=== PATIENT | female | born 2000 | race Two or more races ===

== ENCOUNTER 2025-02-05 23:47 | Inpatient (IN) | payer MEDICAID, OTHER ==
[~2025-02-05] VITALS: Ht 160 cm; Wt 65.9 kg
[2025-02-06 00:31] LABS: Urine Bacteria None Seen /hpf (None Seen)
--- NOTE | 2025-02-06 00:38 | ED.PDOC ---
GI ASSESSMENT HPI Comments 24 year old female presents to the ED with a chief complaint of abdominal pain onset yesterday (02/05/25) around 13:00. Patient began experiencing diffused abdominal pain, now worse around epigastric region. She is also experiencing diarrhea, dizziness and noticed abdominal pain worsens with deep breaths. Denies any PMHx as well as nausea, vomiting, fevers, chills, chest pain, shortness of breath, dysuria, hematuria. No other symptoms or modifying factors present at this time. Chief Complaint: Abdominal Pain Time Seen by MD: 00:25 Reviewed Notes: Medications, Allergies Allergies: Coded Allergies: NO KNOWN ALLERGIES (Unverified , 02/06/25) Information Source: Patient Mode of Arrival: Ambulatory Timing: Hours Duration: Since onset Prehospital treatment: None Quality: Aching, Sharp Vomitus: None Severity: Moderate Recent: None Recent Hx of: None Pain Location: Diffuse, Epigastric Modifying Factors: Nothing Associated sign and symptoms: Diarrhea, Abdominal Pain Past Medical History PAST MEDICAL HISTORY: Denies Surgical History: Denies all surgeries SANITOR History: No Pertinent SANITOR History Family History Family History: Reviewed,noncontributory to illness, No family hx of Cancer, No family hx of DM, No family hx of Heart charles, No family hx of HTN, No family hx ofKidney charles, No family hx of Liver charles, No family hx of Lung charles, No family hx of Stroke Social History Smoker: Non-Smoker Alcohol: Denies ETOH Use Drugs: Denies Drug Use Lives In: Home Constitutional: denies: chills, diaphoresis, fatigue, fever, malaise, sweats, weakness, others EENTM: denies: blurred vision, double vision, ear bleeding, ear discharge, ear drainage, ear pain, ear ringing, eye pain, eye redness, hearing loss, mouth pain, mouth swelling, nasal discharge, nose bleeding, nose congestion, nose pain, photophobia, tearing, throat pain, throat swelling, voice changes, others Respiratory: denies: cough, hemoptysis, orthopnea, SOB at rest, shortness of breath, SOB with excertion, stridor, wheezing, others Cardiovascular: denies: chest pain, dizzy spells, diaphoresis, Dyspnea on exertion, edema, irregular heart beat, left arm pain, lightheadedness, palpitations, PND, syncope, others Gastrointestinal: reports: abdominal pain, diarrhea; denies: abdomen distended, blood streaked bowels, constipated, dysphagia, difficulty swallowing, hematemesis, melena, nausea, poor appetite, poor fluid intake, rectal bleeding, rectal pain, vomiting, others Genitourinary: denies: abnormal vagina bleeding, burning, dyspareunia, dysuria, flank pain, frequency, hematuria, incontinence, pain, , vagina discharge, urgency, others Neurological: denies: dizziness, fainting, headache, left sided numbness, left sided weakness, numbness, paresthesia, pre-existing deficit, right sided numbness, right sided weakness, seizure, speech problems, tingling, tremors, weakness, others Musculoskeletal: denies: back pain, gout, joint pain, joint swelling, muscle pain, muscle stiffness, neck pain, others Integumetry: denies: bruises, change in color, change in hair/nails, dryness, laceration, lesions, lumps, rash, wounds, others Allergic/Immunocompromised: denies: Difficulty Healing, Frequent Infections, Hives, Itching, others Hematologic/Lymphatic: denies: anemia, blood clots, easy bleeding, easy bruising, swollen glands, others Endocrine: denies: excessive hunger, excessive sweating, excessive thirst, excessive urination, flushing, intolerance to cold, intolerance to heat, unexplained weight gain, unexplained weight loss, others Psychiatric: denies: anxiety, bipolar disorder, depression, hopeless, panic disorder, schizophrenia, sleepless, suicidal, others All Other Systems: Reviewed and Negative Physical Exam General Appearance: No Apparent Distress, Normal HEENT: Normal ENT Inspection, Pharynx Normal, TMs Normal Neck: Full Range of Motion, Non-Tender, Normal, Normal Inspection Respiratory: Chest Non-Tender, Lungs Clear, No Accessory Muscle Use, No Respiratory Distress, Normal Breath Sounds Cardiovascular: No Edema, No JVD, No Murmur, No Gallop, Normal Peripheral Pulses, Regular Rate/Rhythm Breast Exam: Deferred Gastrointestinal: No Organomegaly, Non Tender, No Pulsatile Mass, Normal Bowel Sounds, Soft Genitalia: Deferred Pelvic: Deferred Rectal: Deferred Extremities: No calf tenderness, Normal capillary refill, Normal inspection, Normal range of motion, Non-tender, No pedal edema Musculoskeletal : Apperance: Normal Neurologic: Alert, doughnut icer machine II-XII nml as Tested, No Motor Deficits, Normal Affect, Normal Mood, No Sensory Deficits Cerebellar Function: Normal Reflexes: Normal Skin: Dry, Normal Color, Warm Lymphatic: No Adenopathy Was a procedure done? Was a procedure done?: No GI differential Dx Differential Diagnosis: Complete , Incomplete , Inevitable , Threatened , Ectopic , Gastritis/PUD, Gastroenteritis, UTI, Other X-Ray, Labs, Meds, VS Vital Signs Date Time Temp Pulse Resp B/P (MAP) Pulse Ox O2 Delivery O2 Flow Rate FiO2 02/06/25 04:00 74 16 117/54 (75) 99 02/06/25 03:30 79 16 99 Room Air* 0 21 02/06/25 03:30 98.5 79 16 113/57 (75) 99 98.5 02/06/25 01:15 90 14 122/74 (90) 98 02/06/25 00:20 98.9 90 14 122/74 (90) 98 98.9 Lab Test 02/06/25 00:24 02/06/25 00:15 Range/Units White Blood Count 12.6 H 4.4-10.8 10^3/uL Red Blood Count 4.07 4.0-5.20 10^6/uL Hemoglobin 11.1 L 12.2-16.2 g/dL Hematocrit 33.5 L 36.0-46.0 % Mean Corpuscular Volume 82.2 80.0-100.0 fL Mean Corpuscular Hemoglobin 27.1 L 28.0-32.0 pg Mean Corpuscular Hemoglobin Concent 33.0 32.0-36.0 g/dL Red Cell Distribution Width 14.3 11.8-14.3 % Platelet Count 270 140-450 10^3/uL Mean Platelet Volume 8.9 6.9-10.8 fL Neutrophils (%) (Auto) 76.5 37.0-80.0 % Lymphocytes (%) (Auto) 15.9 10.0-50.0 % Monocytes (%) (Auto) 6.8 0.0-12.0 % Eosinophils (%) (Auto) 0.3 0.0-7.0 % Basophils (%) (Auto) 0.5 0.0-2.0 % Neutrophils # (Auto) 9.7 H 1.6-8.6 10 ^3/uL Lymphocytes # (Auto) 2.0 0.4-5.4 10 ^3/uL Monocytes # (Auto) 0.9 0-1.3 10 ^3/uL Eosinophils # (Auto) 0 0-0.8 10 ^3/uL Basophils # (Auto) 0.1 0-0.2 10 ^3/uL Nucleated Red Blood Cells 0.0 % Prothrombin Time 10.8 9.3-11.8 sec Prothrombin Time INR 1.02 0.9-1.15 Activated Partial Thromboplast Time 24.5 24.5-34.5 SEC Sodium Level 139 136-145 mmol/L Potassium Level 3.7 3.5-5.1 mmol/L Chloride Level 104 98-107 mmol/L Carbon Dioxide Level 25 20-31 mmol/L Anion Gap 10 5-15 Blood Urea Nitrogen 12 9-23 mg/dL Creatinine 0.77 0.550-1.02 mg/dL Glomerular Filtration Rate Calc 110 >90 mL/min BUN/Creatinine Ratio 15.6 10.0-20.0 Serum Glucose 114 H 74-106 mg/dL Calcium Level 9.3 8.7-10.4 mg/dL Total Bilirubin 0.5 0.2-1.0 mg/dL Aspartate Amino Transferase (AST) 14 13-40 U/L Alanine Aminotransferase (ALT) 16 7-40 U/L Alkaline Phosphatase 56 46-116 U/L Total Protein 6.9 5.7-8.2 g/dL Albumin 4.5 3.2-4.8 g/dL Lipase 32 12-53 U/L Beta HCG, Quantitative 3191.5 H 1.5-4.2 mIU/mL Urine Color Yellow Yellow Urine Clarity Turbid H Clear Urine pH 5.5 5.0-9.0 Urine Specific [place] 1.031 1.001-1.035 Urine Protein Negative Negative Urine Ketones 1+ H Negative Urine Blood 2+ H Negative /uL Urine Nitrite Negative Negative Urine Bilirubin Negative Negative Urine Urobilinogen Normal Negative mg/dL Urine Leukocyte Esterase Negative Negative /uL Urine RBC 1 0 - 4 /hpf Urine Microscopic WBC 4 0-5 /HPF Urine Squamous Epithelial Cells Mod <5 /hpf Urine Bacteria None seen None Seen /hpf Urine Hyaline Casts Few 0 - 2 /lpf Urine Mucus Few None Seen Urine Glucose Normal Normal mg/dL Current Medications Medications (Trade) Dose Ordered Sig/Ed Route Start Time Stop Time Status Last Admin Ondansetron HCl (Zofran Po) 4 mg ONCE ONCE PO 02/06/25 00:45 02/06/25 00:46 DC 02/06/25 01:12 Al Hydrox/Mg Hydrox/Simethicone (Maalox Plus) 30 ml ONCE ONCE PO 02/06/25 00:45 02/06/25 00:46 DC 02/06/25 01:12 Loperamide HCl (Imodium Capsule) 4 mg ONCE ONCE PO 02/06/25 00:45 02/06/25 00:46 DC 02/06/25 01:12 Sodium Chloride 1,000 ml @ 1,000 mls/hr Q1H ONCE IV 02/06/25 02:30 02/06/25 03:29 DC 02/06/25 03:29 Time of 1ST Reevaluation: 00:55 Reevaluation 1ST: Unchanged Consultation: senior insight manager international (Dr Irby - based on US finding will take pt to OR for ectopic ) Patient Education/Counseling: Diagnosis, Treatment, Prognosis Family Education/Counseling: No Family Present Additional Information The following tests were ordered, and results were reviewed by me: CBC,CMP, BETA HCG, LIPASE, UA, CT AB PEL WO CON I reviewed and agreed with the following test results read by other providers: CT AB PEL WO CON I discussed treatment and results with medical personnel and: patient Comprehensive systems review obtained and negative except for what is stated in the HPI. Departure 1 Departure Time of Disposition: 02:00 Impression: Primary Impression: Ectopic Disposition: ADMITTED INPATIENT Condition: Guarded Discharged With: Self Critical Care Note Critical Care Time?: Yes (35 min-critical care time only) Critical care comment: Total critical care time: Approximately 36 minutes Due to a high probability of clinically significant, life threatening deterioration, the patient required my highest level of preparedness to intervene emergently and I personally spent this critical care time directly and personally managing the patient. This critical care time included obtaining a history; examining the patient; pulse oximetry; ordering and review of studies; arranging urgent treatment with development of a management plan; evaluation of patient's response to treatment; frequent reassessment; and, discussions with other providers. This critical care time was performed to assess and manage the high probability of imminent, life-threatening deterioration that could result in multi-organ failure. It was exclusive of separately billable procedures and treating other patients. Stability Stability form required: No I personally scribed for SUZIE HAYDEN MD ([email or web address]) on 02/06/25 at 00:38. Electronically submitted by Desiree Burgos ([email or web address]). I personally scribed for SUZIE HAYDEN MD ([email or web address]) on 02/06/25 at 00:45. Electronically submitted by Desiree Burgos ([email or web address]). SUZIE HAYDEN MD February 06, 2025 00:38
[2025-02-06 00:41] LABS: Basophils # (auto) 0.1 10 ^3/uL (0-0.2); Basophils % (auto) 0.5 % (0.0-2.0); Eosinophils # (auto) 0 10 ^3/uL (0-0.8); Eosinophils % (auto) 0.3 % (0.0-7.0); Hematocrit 33.5 % (36.0-46.0); Hemoglobin 11.1 g/dL (12.2-16.2); Lymphocytes % (auto) 15.9 % (10.0-50.0); Mean Corpuscular Hemoglobin 27.1 pg (28.0-32.0); Mean Corpuscular Volume 82.2 fL (80.0-100.0); Monocytes # (auto) 0.9 10 ^3/uL (0-1.3); Monocytes % (auto) 6.8 % (0.0-12.0); Neutrophils # (auto) 9.7 10 ^3/uL (1.6-8.6); Neutrophils % (auto) 76.5 % (37.0-80.0); Platelet Count (auto) 270 10^3/uL (140-450); Red Blood Cells 4.07 10^6/uL (4.0-5.20); Red Cell Distribution Width 14.3 % (11.8-14.3); White Blood Cell 12.6 10^3/uL (4.4-10.8)
[2025-02-06 00:47] LABS: Urine Blood 2+ /uL (Negative); Urine Clarity Turbid (Clear); Urine Color Yellow (Yellow); Urine Hyaline Cast FEW /lpf (0 - 2); Urine Mucus FEW (None Seen); Urine Protein, UAD Negative (Negative); Urine Specific Gravity 1.031 (1.001-1.035); Urine Squamous Epithelial Cell MOD /hpf (<5); Urine Urobilinogen Normal (Negative); Urine WBC 4 /HPF (0-5); Urine pH 5.5 (5.0-9.0)
[2025-02-06 00:54] LABS: Alanine Aminotransferase 16 U/L (7-40); Albumin 4.5 g/dL (3.2-4.8); Alkaline Phosphatase 56 U/L (46-116); Anion Gap 10 (5-15); Aspartate Aminotransferase 14 U/L (13-40); BUN/Creatinine Ratio 15.6 (10.0-20.0); Blood Urea Nitrogen 12 mg/dL (9-23); Calcium 9.3 mg/dL (8.7-10.4); Carbon Dioxide 25 mmol/L (20-31); Chloride 104 mmol/L (98-107); Lipase 32 U/L (12-53); Potassium 3.7 mmol/L (3.5-5.1); Sodium 139 mmol/L (136-145); Total Protein 6.9 g/dL (5.7-8.2)
[2025-02-06 00:55] LABS: Bilirubin, Total 0.5 mg/dL (0.2-1.0)
[2025-02-06 00:59] LABS: Glucose 114 mg/dL (74-106)
[2025-02-06] MEDS: MAALOX PLUS or MAALOX 30 ML PO ONE (01:12)
[2025-02-06] MEDS: ONDANSETRON ODT 4 MG TAB PO ONE (01:12)
[2025-02-06] MEDS: LOPERAMIDE HCL 2 MG CAP/TAB PO ONE (01:12)
[2025-02-06 02:56] LABS: INR 1.02 (0.9-1.15); Partial Thromboplastin Time 24.5 SEC (24.5-34.5); Prothrombin Time 10.8 sec (9.3-11.8)
--- NOTE | 2025-02-06 03:14 | DVH ---
Examination: OB4US CLINICAL INDICATION: pain COMPARISON: None. TECHNIQUE: Transabdominal and transvaginal ultrasound was performed. FINDINGS: The uterus is anteverted and measures 6.75 � 4.50 � 3.40 cm. It shows a homogeneous echotexture. The endometrial thickness is 4.3 mm. The cervix is within normal limits. The right ovary measures 4.7 � 3.0 � 3.2 cm. A right adnexal heterogeneous structure, measuring 4.4 � 7.9 x 4.3 cm noted adjacent to the right ovary surrounding fluid. Fluid is seen in the cul-de-sac and in Morison�s pouch. No intrauterine is identified at this time. IMPRESSION: 1. No intrauterine is seen at this time. 2. Right adnexal mass with echogenicity, likely of ovarian origin. 3. Trace free fluid in the cul-de-sac and fluid seen in Morison�s pouch. 4. Findings are concerning for ectopic in the setting of positive B-hCG (3191). Recommendation: Urgent CORPORATE TRAVEL COORDINATOR evaluation and correlation with serial B-hCG and clinical status. Consider repeat ultr asound in 48 hours if clinically stable. Electronically Signed 02/06/2025 03:12 Joleen Galloway
[2025-02-06] MEDS: LACTATED RINGER'S 1,000 ML IV ONE (03:15)
[2025-02-06] MEDS: SODIUM CHLORIDE 0.9% 1,000 ML IV ONE (03:29)
[2025-02-06 03:30] VITALS: PULSE 79; RESP 16; O2SAT 99
[2025-02-06] MEDS: SUCCINYLCHOLINE CHLORIDE 20 MG/ML 10ML VIAL IV ONE (05:11)
[2025-02-06] MEDS ORDERED: ROCURONIUM 10MG/ML 10ML VIAL IV ONE (05:13)
[2025-02-06] MEDS ORDERED: NEOSTIGMINE 1 MG/ML INJ (10mg/10ML VIAL) ONE (05:13)
[2025-02-06] MEDS ORDERED: GLYCOPYRROLATE 0.2 MG/ML 1ML VIAL ONE (05:13)
[2025-02-06] MEDS ORDERED: fentaNYL CITRATE 100 MCG/2 ML VL ONE ×2 (05:13→06:30)
[2025-02-06] MEDS ORDERED: LIDOCAINE 2% (LOCAL ANESTH.) PF 5ml SDV ONE (05:13)
[2025-02-06] MEDS ORDERED: ceFAZolin 1GM VL ONE (05:13)
[2025-02-06] MEDS ORDERED: ONDANSETRON HCL 4 MG/2 ML VIAL ONE (05:13)
[2025-02-06] MEDS ORDERED: PROPOFOL 10 MG/ML 20 ML IV ONE (05:13)
[2025-02-06] MEDS ORDERED: DexAMETHasone SOD PHOS 10MG/1ML VIAL INJ ONE (05:13)
--- NOTE | 2025-02-06 05:29 | DVHHP ---
ADMIT DATE: 02/05/2025 CHIEF COMPLAINT: Abdominal pain. HISTORY OF PRESENT ILLNESS: The patient is a 24-year-old female with sudden onset of abdominal pain, at 1:00 p.m. diffuse abdominal pain, worsening with deep breathing and some vaginal spotting. The patient presented to the Emergency Room and was noted to have suspected ruptured ectopic , right adnexal mass of 4.4 x 8 cm, free fluid in the cul-de-sac noted. Uterus was approximately 7 weeks' size. Her beta-hCG was 3191. No intrauterine gestational sac was noted. The patient has consented for exploratory laparotomy, possible removal of affected tube or ovary on the involved site or both, possible blood transfusion. PAST MEDICAL HISTORY: None. PAST SURGICAL HISTORY: None. SOCIAL HISTORY: None. FAMILY HISTORY: Unremarkable. REVIEW OF SYSTEMS: Consistent with HPI. PHYSICAL EXAMINATION: VITAL SIGNS: Stable, afebrile. HEENT: Within normal limits. CARDIOVASCULAR: Regular rate and rhythm. LUNGS: Clear to auscultation. BREASTS: Symmetrical. No masses. ABDOMEN: Diffuse tenderness. Peritoneal sign noted. Positive rebound. PELVIC: External genitalia within normal limits. Vagina, some bleeding noted. Cervical motion tenderness noted. Adnexal tenderness noted. EXTREMITIES: No clubbing, cyanosis, or edema. IMPRESSION: Suspect ruptured ectopic . PLAN: Exploratory laparoscopy and possible removal of affected tube or ovary or both, possible blood transfusion, informed consent obtained. Risks and complications of surgery including infection, bleeding, hematoma formation, injury to bowel or bladder, surrounding organ, possibility of DVT, pulmonary embolism, and risks of anesthesia discussed with the patient. Options reviewed. Possibility of infertility in the future discussed with the patient. All questions answered. The patient fully understands. She wishes to proceed with planned procedure. DO GEORGI Leon/KIA TID: [id number] RECEIPT: [id number]
[2025-02-06] MEDS ORDERED: ONDANSETRON HCL 4 MG/2 ML VIAL IV PRN (05:30)
[2025-02-06] MEDS ORDERED: LACTATED RINGER'S 1,000 ML IV SCH (05:30)
[2025-02-06] MEDS: ceFAZolin 2 GM/D5W50ml 50 ML IV ONE (05:31)
[2025-02-06] MEDS ORDERED: DOCU-94 PO (05:34)
[2025-02-06] MEDS ORDERED: HYDR-4072 PO (05:34)
[2025-02-06] MEDS ORDERED: IBUP-1456 PO (05:34)
[2025-02-06] MEDS ORDERED: HYDROmorphone HCL 2 MG/ML VL/or syr ONE (05:47)
[2025-02-06] MEDS: ACETAMINOPHEN IV 100 ML IV ONE (06:08)
[2025-02-06] MEDS ORDERED: ePHEDrine SULFATE 50 MG/ML AMP ONE (06:20)
[2025-02-06 06:35] VITALS: PULSE 62; RESP 16; O2SAT 100
--- NOTE | 2025-02-06 06:38 | DVHOP2 ---
Operative Report DATE OF OPERATION: 02/06/25 PREOPERATIVE DIAGNOSES: Ruptured ectopic POSTOPERATIVE DIAGNOSES: -suspect left ovarian preg vs hemorrhagic left ovary pending pathology,hemoperitonum SURGEON: Linh Irby D.O./jesus ANESTHESIOLOGIST: elina bob TYPE OF ANESTHESIA : General CONSENT: The patient was informed of the risks and benefits of the procedure. The patient was informed of the risks and benefits of the procedure. These include but are not limited to , complications of anesthesia, postoperative infection, incomplete relief of symptoms, recurrence of symptoms, damage to blood vessels, nerves and tendons, deep venous thrombosis, pulmonary embolism and possible need for repeat surgery in the future. FINDINGS: 1 L of hemoperitoneum, right tube compeletly normal , right ovary jack sly normal appearing, uterus 5 weeks size, left tube,left ovary inferior pole ruptured with tissue extruding out bleeding suspect ovarian preg vs hemoohagic ovary PROCEDURES: Exploratory laparotomy,partial oophrectomy left side approx 1/4 of ovary removed,evacuation of clots. PROCEDURE IN DETAIL: The patient was taken to the operating room placed in supine position. General anesthesia was performed without difficulty. A low Pfannenstiel incision was made with scalpel down to the rectus fascia. The rectus fascia was nicked in the midline and carried laterally. The rectus fascia was dissected superiorly and inferiorly. The rectus muscles were in the midline. Peritoneum was identified and entered with sharp dissection . An O'Estevan-O'Montgomery retractor with moist laps were placed into the abdomen and bowel was packed at this point. At approximately 1000 ml of hemoperitoneum was evacuated. The ectopic was suspected to be of left ovarian tip wit tissue extruding out of it and bleeding which was excised approx 1/4 of the ovary was excised and its bed was sutured .the left tube was compeletly nl . and using a JESSICA stapler the right tube was excised. Clips were applied to the pedicular site. Copious irrigation was performed all blood clots were removed. The left tube and ovary were grossly intact. The right ovary and tube was grossly intact appearing. Uterus was 5 weeks in sizepelvic was copiuosly irrigated.. All laparotomy sponges were removed from the abdomen and pelvis. No bleeding was noted good hemostasis was noted. The O'Estevan O'Montgomery retractor was removed. Fascia was closed using 0 Prolene x2. Skin was closed using staplers. Patient was extubated successfully. She was taken to recovery room in stable condition. Specimen was sent to pathology and it was taken out of the room. ESTIMATED BLOOD LOSS: EBL was 1 L of hemoperitoneum 100 ml intraoperative blood loss. Visit Coding OBGYN Date of Service: February 06, 2025 Billing Provider: LINH IRBY DO FLYING TEACHER Common Visit Codes: 75918-LKS/OBS SAME DATE (HIGH) FLYING TEACHER Procedure Codes: 97376-EUK.SURG:W/REM ADNEXAL STRUCT LINH IRBY DO February 06, 2025 06:38
--- NOTE | 2025-02-06 06:41 | POSTOP ---
Post-Operative Note Post-Operative Note Preop Diagnosis ruptured ectopic preg abd apin Postop Diagnosis: left ovarian ectopic pending path vs left hemorrhagic ovary Operation performed expl lap,left aprtial oophrectomy,evacuation of hemoperitoneum Specimen partial ovary left side Anesthesia: General Anesthesiologist: elina bob Blood Loss(fluid mgmt) 100ml Surgeon Naveen Irby First Breaker Feeder jesus Implant clips Complications & Mgmt none Additional Remarks h and p [id number] Date 02/06/25 Time 06:38 Visit Coding OBGYN Date of Service: February 06, 2025 Billing Provider: NAVEEN IRBY DO SUPERINTENDENT SYSTEM OPERATION Common Visit Codes: 22849-BXP/OBS SAME DATE (HIGH) SUPERINTENDENT SYSTEM OPERATION Procedure Codes: 82563-LNJ.SURG:W/REM ADNEXAL STRUCT, 53389-ATW.SURG:ON OVIDUCT/OVARY NAVEEN IRBY DO February 06, 2025 06:41
[2025-02-06] MEDS: BUPIVACAINE W/ EPINEPH 0.5% MPF 30ML VIAL IJ ONE (06:52)
[2025-02-06] MEDS ORDERED: HYDROmorphone HCL 2 MG/ML VL/or syr IV PRN ×2 (07:00→08:00)
[2025-02-06] MEDS ORDERED: fentaNYL CITRATE 100 MCG/2 ML VL IV PRN (07:00)
[2025-02-06] MEDS: ONDANSETRON HCL 4 MG/2 ML VIAL IV ONE (07:00)
[2025-02-06] MEDS: RHO (D) IMMUNE GLOBULIN 300 MCG INJ IM PRN (12:02)
[2025-02-06] MEDS: ceFAZolin 1GM/50ML 50 ML IV SCH (14:02)
[2025-02-06 15:38] VITALS: BP 115/57; PULSE 75; RESP 17; TEMP 98.9; O2SAT 97
[2025-02-06 16:31] VITALS: BP 115/57; PULSE 75; RESP 17; TEMP 98.9; O2SAT 97
[2025-02-06] MEDS: MORPHINE SULFATE 4 MG/ML SYR/VIAL IV PRN (16:54)
[2025-02-06 20:10] LABS: Basophils # (auto) 0 10 ^3/uL (0-0.2); Basophils % (auto) 0.2 % (0.0-2.0); Eosinophils # (auto) 0 10 ^3/uL (0-0.8); Hematocrit 29.2 % (36.0-46.0); Lymphocytes # (auto) 1.4 10 ^3/uL (0.4-5.4); Lymphocytes % (auto) 13.9 % (10.0-50.0); Mean Corpuscular Hemoglobin 27.9 pg (28.0-32.0); Mean Corpuscular Hgb Conc. 34.3 g/dL (32.0-36.0); Mean Corpuscular Volume 81.5 fL (80.0-100.0); Monocytes % (auto) 9.8 % (0.0-12.0); Neutrophils # (auto) 7.9 10 ^3/uL (1.6-8.6); Neutrophils % (auto) 76.1 % (37.0-80.0); Nucleated Red Blood Cells % 0.1 %; Platelet Count (auto) 197 10^3/uL (140-450); Red Blood Cells 3.58 10^6/uL (4.0-5.20); Red Cell Distribution Width 14.3 % (11.8-14.3); White Blood Cell 10.4 10^3/uL (4.4-10.8)
[2025-02-06 21:00] VITALS: BP 117/72; PULSE 85; RESP 20; TEMP 99.5; O2SAT 96
[2025-02-06] MEDS ORDERED: BISACODYL 10 MG RECT SUPP PR PRN (22:00)
[2025-02-06] MEDS: LACTATED RINGER'S 1,000 ML IV SCH (22:36)
[2025-02-07] VITALS (8 sets, daily range): BP systolic 100–112; BP diastolic 51–60; PULSE 69–101; RESP 18–20; TEMP 97.2–99.3; O2SAT 96–99
[2025-02-07] MEDS: DOCUSATE SOD 100 MG CAP PO SCH (00:39)
[2025-02-07] MEDS: HYDROcodone-ACET 10/325MG TAB PO PRN (01:33)
[2025-02-07 06:09] LABS: Basophils # (auto) 0 10 ^3/uL (0-0.2); Basophils % (auto) 0.4 % (0.0-2.0); Eosinophils # (auto) 0 10 ^3/uL (0-0.8); Eosinophils % (auto) 0.1 % (0.0-7.0); Hematocrit 29.5 % (36.0-46.0); Lymphocytes # (auto) 2.1 10 ^3/uL (0.4-5.4); Lymphocytes % (auto) 20.6 % (10.0-50.0); Mean Corpuscular Hemoglobin 28.1 pg (28.0-32.0); Mean Corpuscular Hgb Conc. 33.8 g/dL (32.0-36.0); Mean Corpuscular Volume 83.1 fL (80.0-100.0); Monocytes # (auto) 0.9 10 ^3/uL (0-1.3); Monocytes % (auto) 8.9 % (0.0-12.0); Neutrophils # (auto) 7.1 10 ^3/uL (1.6-8.6); Nucleated Red Blood Cells % 0.1 %; Platelet Count (auto) 194 10^3/uL (140-450); Red Blood Cells 3.55 10^6/uL (4.0-5.20); Red Cell Distribution Width 14.1 % (11.8-14.3); White Blood Cell 10.1 10^3/uL (4.4-10.8)
--- NOTE | 2025-02-07 07:03 | DVHPN2 ---
Chief Complaints Patient reports: No new complaints Nursing reports: No new complaints Objective Vitals Vital Signs Date Time Temp Pulse Resp B/P (MAP) Pulse Ox O2 Delivery O2 Flow Rate FiO2 02/07/25 05:00 98.3 79 20 103/59 (74) 96 98.3 02/06/25 20:00 Room Air* 0 21 Medications Current Medications Medications (Trade) Dose Ordered Sig/Ed Route PRN Reason Start Time Stop Time Status Last Admin Acetaminophen/ Hydrocodone Bitart (Humphreys 10/325MG Tab) 1 tab Q4HP PRN PO MODERATE PAIN (4-6 PAIN SCALE) 02/06/25 22:00 02/07/25 06:59 Bisacodyl (Dulcolax Suppository) [address] FOR CONSTIPATION 02/06/25 22:00 Docusate Sodium (Colace Capsule) 100 mg BID PO 02/06/25 22:00 02/07/25 00:39 Hydromorphone HCl (Dilaudid Injection) 0.5 mg [id number] PRN IV PAIN SCALE 1 THRU 6 02/06/25 08:00 Hold Lactated Ringer's 1,000 ml @ 80 mls/hr [id number] IV 02/06/25 22:00 02/06/25 22:36 Lungs: Normal Cardiovascular: Normal Abdominal: Soft Extremities: Normal Studies Laboratory Tests 02/07/25 05:22 02/06/25 00:24 Test 02/06/25 00:24 Range/Units Serum Glucose 114 H 74-106 mg/dL Ass/Plan Assessment s/p expl lap left partial oophrectomy Plan supportive care bhcg is going down approp Visit Coding OBGYN Date of Service: February 07, 2025 Billing Provider: NAVEEN JENKINS DO STEAM ENGINEER Common Visit Codes: [id number] INP/OBS CARE(HIGH) NAVEEN JENKINS DO February 07, 2025 07:03
[2025-02-07] MEDS: METOCLOPRAMIDE HCL 5MG/ml INJ 2ml VIAL IV ONE (07:48)
--- NOTE | 2025-02-07 17:26 | DVHPN2 ---
Subjective in bed feeling well Changes from previous H/P or p: No Changes Objective Vitals Vital Signs Date Time Temp Pulse Resp B/P (MAP) Pulse Ox O2 Delivery O2 Flow Rate FiO2 02/07/25 16:33 97.8 101 18 112/54 (73) 96 97.8 02/07/25 08:00 Room Air* 0 21 Intake/Output Intake and Output 02/07/25 07:00 Intake Total 200 ml Balance 200 ml Intake Oral 100 ml IV Total 100 ml General Appearance: Alert, Oriented X3 Lungs: Clear to auscultation Cardiovascular: Regular rate, Normal S1, Normal S2 Medications Current Medications Medications Dose Ordered Sig/Ed Route Start Time Stop Time Status Last Admin Dose Admin Rho Immune Globulin 300 mcg ONCE PRN IM 02/06/25 05:30 02/06/25 12:02 300 MCG Ondansetron HCl 4 mg Q4HP PRN IV 02/06/25 05:30 Morphine Sulfate 2 mg Q4HP PRN IV 02/06/25 05:30 02/07/25 15:00 2 MG Cefazolin Sodium 50 ml @ 100 mls/hr Q8HR IV 02/06/25 06:00 02/07/25 15:07 100 MLS/HR Hydromorphone HCl 0.5 mg [id number] PRN IV 02/06/25 08:00 Hold Lactated Ringer's 1,000 ml @ 80 mls/hr [id number] IV 02/06/25 22:00 02/07/25 10:30 80 MLS/HR Acetaminophen/ Hydrocodone Bitart 1 tab Q4HP PRN PO 02/06/25 22:00 02/07/25 06:59 1 TAB Docusate Sodium 100 mg BID PO 02/06/25 22:00 02/07/25 09:27 100 MG Bisacodyl 10 mg Q6HP PRN [place] 02/06/25 22:00 Laboratory Results Laboratory Tests 02/06/25 00:24 02/07/25 05:22 Urinalysis Test 02/06/25 00:15 Urine Color Yellow (Yellow) Urine Clarity Turbid (Clear) H Urine pH 5.5 (5.0-9.0) Urine Specific [place] 1.031 (1.001-1.035) Urine Protein Negative (Negative) Urine Ketones 1+ (Negative) H Urine Blood 2+ /uL (Negative) H Urine Nitrite Negative (Negative) Urine Bilirubin Negative (Negative) Urine Urobilinogen Normal mg/dL (Negative) Urine Leukocyte Esterase Negative /uL (Negative) Urine RBC 1 /hpf (0 - 4) Urine Microscopic WBC 4 /HPF (0-5) Urine Squamous Epithelial Cells Mod /hpf (<5) Urine Bacteria None seen /hpf (None Seen) Urine Hyaline Casts Few /lpf (0 - 2) Urine Mucus Few (None Seen) Urine Glucose Normal mg/dL (Normal) Assessment/Plan Assessment/Plan s/p expl lap left partial oophrectomy No medical problems Can be discharged when OB feels appropiate Plan discussed with: Patient Date of Service: February 07, 2025 Billing Provider: MAGDIEL NANCE MD Common Visit Codes: 12445-OORACANSEE INP/OBS CARE(HIGH) MAGDIEL NANCE MD February 07, 2025 17:26
[2025-02-08 01:00] VITALS: BP 111/59; PULSE 86; RESP 17; TEMP 98.2; O2SAT 98
--- NOTE | 2025-02-08 02:50 | DVHPN2 ---
Chief Complaints Patient reports: No new complaints, Feels better Nursing reports: No new complaints Objective Vitals Vital Signs Date Time Temp Pulse Resp B/P (MAP) Pulse Ox O2 Delivery O2 Flow Rate FiO2 02/08/25 01:00 98.2 86 17 111/59 (76) 98 98.2 02/07/25 20:00 Room Air* 0 21 General: Normal Lungs: Normal Cardiovascular: Normal Abdominal: Soft Extremities: Normal Studies Laboratory Tests 02/07/25 05:22 02/06/25 00:24 Test 02/06/25 00:24 Range/Units Serum Glucose 114 H 74-106 mg/dL Ass/Plan Assessment s/p expl lap left partial oophrectomy PRELIMINARY PATH REPORT C/W OVARIAN ECTOPIC Plan DC HOME LATER TODAY FU THIS WED AT 10 AM Visit Coding OBGYN Date of Service: February 08, 2025 Billing Provider: NAVEEN JENKINS DO ZANJERO Common Visit Codes: 51278-[id number] INP/OBS CARE(HIGH) ZANJERO Procedure Codes: 96190-IQV.SRG: EXC.OVRY/PELV/PERIT, 74100-KGW.SURG:ON OVIDUCT/OVARY NAVEEN JENKINS DO February 08, 2025 02:50
--- NOTE | 2025-02-08 02:51 | DVHDS2 ---
Physician Discharge Progress N Final Diagnosis: left ovarian ectopic Operations or Procedures: Operations or Procedures expl lap,left aprtial oophrectomy,evacuation of hemoperitoneum Condition on Discharge: Good Disposition: Home Discharge Instructions: Diet: Regular Activity: Light activity Medications: ZOFRAN,NORCO Follow Up Care: Specialist: SUMI LIVE MON 10 AM Discharge Statement: "Patient was advised to return to the ER or call 911 if any headaches, dizziness, shortness of breath, chest pain, abdominal pain, bleeding, fevers, or worsening of medical condition. Patient was counseled about treatment plan, medications, possible side effects, patientverbalized understanding. All questions were answered to the best of my ability. This discharge took greater then 30 minutes in planning, reviewing documentation, counseling the patient, and discussing with other team members." Visit Coding OBGYN Date of Service: February 08, 2025 Billing Provider: NAVEEN JENKINS DO WATER SANDER Common Visit Codes: [id number] INP/OBS CARE (HIGH), 97886-[id number] INP/OBS CARE(HIGH) NAVEEN JENKINS DO February 08, 2025 02:51
--- NOTE | 2025-02-08 02:55 | DVHPN2 ---
Visit Coding OBGYN Date of Service: February 08, 2025 Billing Provider: NAVEEN JENKINS DO BIT TRIPOLER Common Visit Codes: 03685-NVV/OBS SAME DATE (HIGH) BIT TRIPOLER Procedure Codes: 32134-PXX.SRG: EXC.OVRY/PELV/PERIT, 88959-MOD.SURG:ON OVIDUCT/OVARY NAVEEN JENKINS DO February 08, 2025 02:55
[2025-02-08 05:00] VITALS: BP 107/69; PULSE 82; RESP 18; TEMP 98.2; O2SAT 98
[2025-02-08 08:20] VITALS: PULSE 102; RESP 20; O2SAT 97
[2025-02-08 09:00] VITALS: BP 118/59; PULSE 102; RESP 20; TEMP 98.2; O2SAT 97
== END 2025-02-08 12:30 | disposition home or self-care (01) | DRG 547 ==
LOC: ER 23:47 → OVERFLOW 02-06 06:47 → WEST WING 02-06 14:40
PROVIDERS: ADMIT Hospitalist; ATTEND Hospitalist
PROC: 0UB10ZZ Excision of Left Ovary, Open Approach (ICD-10-PCS; 2025-02-06)
PROC: 0WCG0ZZ Extirpation of Matter from Peritoneal Cavity, Open Approach (ICD-10-PCS; 2025-02-06)
PROC: 3E0234Z Introduction of Serum, Toxoid and Vaccine into Muscle, Percutaneous Approach (ICD-10-PCS; 2025-02-06)
PROC: 10T20ZZ Resection of Products of Conception, Ectopic, Open Approach (ICD-10-PCS; principal; 2025-02-06 05:34)
DX: O00.202 Left ovarian pregnancy without intrauterine pregnancy (principal); K66.1 Hemoperitoneum; Z79.899 Other long term (current) drug therapy; Z23 Encounter for immunization; O08.1 Delayed or excessive hemorrhage following ectopic and molar pregnancy
CPT/HCPCS: 36415; 76801; 76817; 80053; 81001; 83690; 84702; 85025; 85610; 85730; 86850; 86900; 86901; 86920; 90384; 96360; 99291; G0378; J0131; J0330; J0690; J1100; J2003; J2405; J2704; Q0162